=== PATIENT | female | born 1990 | race Caucasian/White ===

== ENCOUNTER → 2019-08-15 15:20 | Outpatient (CLI) | payer MEDICAID, SELFPAY ==
[2019-08-15 14:33] VITALS: BMI 47.2
[2019-08-15 16:10] LABS: T4 Free Direct 1.03 ng/dL (0.76-1.46); Thyroid Stim Hormone (TSH) 2.66 uIU/mL (0.358-3.74)
[2019-08-18 07:06] LABS: DHEA Sulfate 102.9 ug/dL (84.8-378.0)
[2019-08-20 10:49] LABS: Testosterone Free 1.5 pg/mL (0.0-4.2)
[2019-08-22 13:40] LABS: 17-Hydroxyprogesterone 138 ng/dL (.)
[2019-08-22 16:08] LABS: HPV APTIMA, High Risk Negative (Negative)
== END ==
PROVIDERS: Family Provider Nurse Practitioner Primary Care; PCP Nurse Practitioner Primary Care; Referring Provider Obstetrics & Gynecology; Visit Provider Obstetrics & Gynecology
DX: Z12.4 Encounter for screening for malignant neoplasm of cervix (principal); L68.0 Hirsutism; N91.1 Secondary amenorrhea
CPT/HCPCS: 36415; 82627; 83498; 84402; 84439; 84443; 87624; 88175; 82626; G0145

== ENCOUNTER 2020-11-06 16:33 | Outpatient (RCR) | payer MEDICAID, SELFPAY ==
[2019-10-04 16:03] VITALS: BMI 47.9
== END 2021-01-12 23:59 ==
LOC: IMMUN 16:33
PROVIDERS: PCP Nurse Practitioner Primary Care; Visit Provider Family Medicine
DX: Z23 Encounter for immunization (principal)
CPT/HCPCS: 0001A; 0002A; 91300